=== PATIENT | female | born 1935 | race Caucasian/White ===

== ENCOUNTER 2017-07-26 10:38 | Emergency (ER) | payer OTHER ==
[~2017-07-26] VITALS: Ht 167.6 cm; Wt 60.2 kg
[~2017-07-26 10:38] MED LIST: ALBUTEROL SULF8.5 GM IH; ASPIR 8181 M1 PO; ASPIRIN81 M1 PO; Aspirin E.C. PO; BACLOFEN10 MG PO; BACLOFEN20 MG PO; BACTRIM,SEPT1 TABLET PO; CALCIUM 500 +1 EAC4 PO; CALCIUM CARBON600 M2 PO; CALCIUM CARBON650 MG PO; CEFTIN500 MG PO; CEFUROXIME500 MG PO; CELEBREX200 MG PO; CELECOXIB200 MG PO; COLACE50 MG PO; CRESTOR5 MG PO; CYMBALTA60 MG PO; Cymbalta PO; DAILY VITAMIN1 EAC8 PO; DESIPRAMINE HCL10 MG PO; DULCOLAX10 MG PR; ENDOCET 5-3251 EACH PO; ERGOCALCIF50000 UNIT PO; FLAGYL500 MG PO; GABAPENTIN100 MG PO; GABAPENTIN400 MG PO; GABAPENTIN600 MG PO; GABAPENTIN800 MG PO; GLUCOPHAGE500 MG PO; HEPARIN SO5000 UNITS SC; K-DUR20 MEQ PO; KLOR-CON M2020 MEQ PO; LEVOFLOXACIN750 MG PO; LEVOTHYROXINE50 MCG PO; LIORESAL10 MG PO; LO-DOSE ASPIRIN81 M1 PO; LOW DOSE ASPIRI81 M1 PO; Levaquin PO; Lioresal PO; MACRODANTIN100 MG PO; METFORMIN HCL500 MG PO; METRONIDAZOLE500 MG PO; MILK OF MAGN PO; MIRALAX17 GM PO; MIRALAX255 GM PO; MULTI VITAMIN1 EACH; MULTIVITAMIN1 EAC1 PO; MULTIVITAMIN1 EAC2 PO; NAPROSYN500 MG PO; NEURONTIN400 M1 PO; NEURONTIN400 MG PO; NEURONTIN800 MG PO; NUCYNTA50 MG PO; Neurontin PO; OMEPRAZOLE20 MG PO; OS-CAL 500+D T1 EAC1 PO; Oscal 500 w/Vitamin PO; PANTOPRAZOLE SO40 MG PO; PEN-VEE K,VEET500 MG PO; PERCOCET 5/31 TABLET PO; PHILLIPS'400 MG/5 M PO; POTASSIUM CHLO20 ME2 PO; PRILOSEC20 MG PO; RECLAST5 MG/100 M IV; REQUIP0.25 MG PO; REQUIP0.5 MG PO; REQUIP1 MG PO; REQUIP3 MG PO; ROPINIROLE HCL0.5 MG OP; SUPER CALCIUM600 MG PO; SYNTHROID50 MCG PO; TYLENOL REGULA325 MG PO; VALIUM5 MG PO; VANCOMYCIN125 MG/2.5 PO; VICODIN ES 7.51 EAC1 PO; VICODIN,LORT1 TABLET PO; VITAMIN D10000 UNIT PO; VITAMIN D250000 UNIT PO; VITAMIN D400 INTUNI; Vitamin D, Drisdol PO; ZANAFLEX4 M1 PO; ZETIA10 MG PO; ZOFRAN4 MG PO; ZOLPIDEM TARTRAT5 MG PO
[2017-07-26 11:38] LABS: BASOPHIL (%) 0.4 % (0-1); EOSINOPHIL (%) 1.6 % (0-5); EOSINOPHIL COUNT 0.1 K/uL (0-0.3); HEMOGLOBIN 10.8 G/DL (11.9-15.5); IMMATURE GRANULOCYTE (%) 1.1 % (0.0-0.7); LYMPHOCYTE (%) 23.3 % (15-42); LYMPHOCYTE COUNT 1.7 K/uL (1.0-2.8); MCH 31.1 PG (29.0-34.0); MCHC 34.8 G/DL (30.0-36.0); MCV 89.3 FL (83-99); MONOCYTE (%) 7.8 % (3-12); MONOCYTE COUNT 0.6 K/uL (0-0.8); NEUTROPHIL (%) 65.8 % (45-76); NEUTROPHIL COUNT 4.9 K/uL (1.8-6.4); PLATELET COUNT 175 K/uL (156-360); RBC DIS.WIDTH-CV 14.5 % (11.8-14.6); RBC DIS.WIDTH-SD 46.7 % (39-53); RED BLOOD COUNT 3.47 M/uL (3.80-5.20); WHITE BLOOD COUNT 7.4 K/uL (4.1-10.2)
[2017-07-26 11:56] LABS: ALBUMIN 4.1 g/dL (3.2-4.8); CHLORIDE 108 mEq/L (99-109); POTASSIUM 3.3 mEq/L (3.7-5.4); SODIUM 143 mEq/L (136-147)
[2017-07-26 11:59] LABS: GLUCOSE 151 mg/dL (70-99); TOTAL PROTEIN 7.3 g/dL (6.4-8.3)
[2017-07-26 12:01] LABS: TOTAL BILIRUBIN 0.9 mg/dL (0.0-1.0)
[2017-07-26 12:02] LABS: ALKALINE PHOSPHATASE 52 IU/L (3-129); CREATININE 1.1 mg/dL (0.6-1.3); GFR ESTIMATE (CALCULATED) 51 mL/min/
[2017-07-26 12:03] LABS: UREA NITROGEN (BUN) 18 mg/dL (9-23)
[2017-07-26 12:04] LABS: AST (GOT) 16 IU/L (2-34)
[2017-07-26 12:05] LABS: ALT (GPT) 14 IU/L (3-49)
[2017-07-26 12:06] LABS: LIPASE 15 U/L (1.0-51.0)
[2017-07-26 16:46] VITALS: BP 143/79
== END 2017-07-26 18:13 ==
LOC: EME 10:38
PROVIDERS: Emergency Medicine
DX: I71.4 Abdominal aortic aneurysm, without rupture (principal); K80.20 Calculus of gallbladder without cholecystitis without obstruction; E78.5 Hyperlipidemia, unspecified; G35 Multiple sclerosis; F03.90 Unspecified dementia, unspecified severity, without behavioral disturbance, psychotic disturbance, mood disturbance, and anxiety; F32.9 Major depressive disorder, single episode, unspecified; Z87.891 Personal history of nicotine dependence; Z87.440 Personal history of urinary (tract) infections; Z90.12 Acquired absence of left breast and nipple; Z87.19 Personal history of other diseases of the digestive system; Z85.9 Personal history of malignant neoplasm, unspecified; Z88.1 Allergy status to other antibiotic agents; Z88.8 Allergy status to other drugs, medicaments and biological substances; Z88.2 Allergy status to sulfonamides
CPT/HCPCS: 74021; 74022; 74176; 76705; 80053; 83690; 85025; 99281; 99285